=== PATIENT | male | born 1940 | race Caucasian/White ===

== ENCOUNTER 2019-11-09 14:04 | Emergency (ER) | payer MEDICARE ==
[~2019-11-09] VITALS: Ht 182.9 cm; Wt 63.5 kg
[2019-11-09 14:10] VITALS: BP_SYST 108; BP_SYST 122; BP_DIAS 40; BP_DIAS 66
--- NOTE | 2019-11-09 14:10 | NUR ---
ED Nurse Note: Patient DEMETRIS EUGENE from [facility] c/o S/P fall. Per EMS, pt had a ground level fall, unwitness. Noted with abrasion and bruising on right shoulder. Pt alert and orientedx1. not in any distress. Afebrile. VSS. Will cont to monitor.
--- NOTE | 2019-11-09 14:27 | Emergency Room Report ---
History of Present Illness General Chief Complaint: Multiple Trauma/Fall Present Illness HPI 79-year-old male presents from [facility] rehab due to a fall. Was unwitnessed. Patient denies any head neck or back pain. There is an abrasion noted to right shoulder however patient denies any pain. No nausea or vomiting. No medical complaints at this time. Allergies: Coded Allergies: No Known Allergies (Unverified , 11/09/19) COVID-19 Screening Contact w/high risk pt: No Recent Travel to affected area: No Experienced COVID-19 symptoms?: No Patient History Reviewed Nursing Documentation: PMH: Agreed; PSxH: Agreed Nursing Documentation-PMH Hx Hypertension: Yes Hx Cancer: Yes - lung cancer, brain cancer, ceberal edema Hx Seizures: Yes Review of Systems All Other Systems: negative except mentioned in HPI Physical Exam Vital Signs Date Time Temp Pulse Resp B/P (MAP) Pulse Ox O2 Delivery O2 Flow Rate FiO2 11/09/19 14:08 98.6 72 16 108/40 (62) 95 Room Air Sp02 EP Interpretation: reviewed, normal General Appearance: well appearing, no apparent distress Head: normocephalic, atraumatic Eyes: bilateral eye PERRL, bilateral eye EOMI ENT: hearing grossly normal, moist mucus membranes Neck: full range of motion, supple, other - No midline tenderness noted Respiratory: lungs clear, normal breath sounds, no rhonchi, no respiratory distress, no retraction, no wheezing Cardiovascular #1: normal peripheral pulses, regular rate, rhythm, no murmur Gastrointestinal: non tender, soft, non-distended, no guarding Musculoskeletal: other - Abrasion noted to right shoulder, no deformity noted, full range of motion without pain Neurologic: alert, oriented x3, no focal defects Skin: normal color, warm/dry Medical Decision Making ER Course Differential diagnosis included but not limited to contusion versus fracture versus abrasion. Low suspicion for serious traumatic injury. Doubt intracranial hemorrhage. No signs of trauma on patient's exam was an abrasion to the right shoulder. Right shoulder x-ray ordered. Right shoulder x-ray reviewed by me and showed no acute fracture or other traumatic injury. Patient was stable for discharge back to [facility]way facility Other X-Ray Diagnostic Results Other X-Ray Diagnostic Results : # of Views/Limited Vs Complete: 3 View Indication: Other - Trauma Interpretation: no dislocation, no fractures Impression: No acute disease Last Vital Signs Date Time Temp Pulse Resp B/P (MAP) Pulse Ox O2 Delivery O2 Flow Rate FiO2 11/09/19 14:10 98.6 70 18 122/66 96 Room Air Disposition: SNF Condition: Stable Additional Instructions: Patient is instructed to follow-up with her primary care doctor, primary care clinic or [facility] in 1 to 2 days. Patient instructed to return for any worsening symptoms or concerns. Please note that the documentation in this note was used with [employer] dictation technology. Pleae be advised that this may lead to erroneous text due to misinterpretation by the dictation software Yonatan Moore M.D. Nov 09, 2019 14:27
[2019-11-09] MEDS ORDERED: LORazepam Inj 2mg/ml 1ml IM ONE (15:15)
[2019-11-09] MEDS ORDERED: LORazepam Inj 2mg/ml 1ml ONE (15:17)
--- NOTE | 2019-11-09 15:20 | NUR ---
Note prashant in EDM - 11/09/19 at 1934 by TUCKER ED Nurse Note: Pt cleared by ERMD for discharge. DC instructions was given and explained to nurse at [facility] and verbalized understanding of teachings. All medical deviecs such as ID band removed. Pt was picked up by 2 EMT and left with all personal belongings.
--- NOTE | 2019-11-09 15:44 | NUR ---
ED Nurse Note: Xray at bedside.
--- NOTE | 2019-11-09 16:09 | Diagnostic Imaging Report ---
Indication: Right shoulder pain COMPARISON: None Findings: 3 views of the right shoulder were obtained. No acute fractures, malalignment, erosions or periostitis are identified. Bones are slightly osteopenic. Soft tissues are unremarkable. Impression: Negative for acute injury
--- NOTE | 2019-11-09 16:41 | NUR ---
ED Nurse Note: Inform [facility] that pt. is returning back to their facility
[2019-11-09 17:20] VITALS: BP 122/66
--- NOTE | 2019-11-09 17:20 | NUR ---
ED Nurse Note: Pt cleared by ERMD for discharge. DC instructions was given and explained to nurse at SNF and verbalized understanding of teachings. All medical deviecs such as ID band removed. Pt was picked up by 2 EMT and left with all personal belongings.
== END 2019-11-09 17:20 ==
LOC: EDBD 14:04 → EMR 14:50
DX: S40.211A Abrasion of right shoulder, initial encounter (principal); W19.XXXA Unspecified fall, initial encounter; Y92.9 Unspecified place or not applicable; I10 Essential (primary) hypertension; Z85.118 Personal history of other malignant neoplasm of bronchus and lung; Z85.841 Personal history of malignant neoplasm of brain; G40.909 Epilepsy, unspecified, not intractable, without status epilepticus
CPT/HCPCS: 96372; 99283